=== PATIENT | male | born 1960 | race Caucasian/White ===

== ENCOUNTER 2022-12-08 19:47 | Inpatient (IN) | payer MEDICARE, OTHER ==
[~2022-12-08] VITALS: Ht 172.7 cm; Wt 46.8 kg
[2022-12-08] MEDS ORDERED: IPRATROPIUM 0.5MG/ALBUTEROL 2.5MG INH SOL UD 3ML (DUONEB) NEB ONE (20:35)
[2022-12-08] MEDS ORDERED: methylPREDNISolone 125MG 2ML VIAL IV ONE (20:35)
[2022-12-08 20:40] LABS: HEMOGLOBIN 14.1 g/dl (13.5-17.5); MEAN CORPUSCULAR HEMOGLOBIN 33.5 pg (27.0-33.0); MEAN CORPUSCULAR HGB CONC 33.6 g/dl (32.0-36.5); MEAN CORPUSCULAR VOLUME 99.8 fl (80.0-96.0); PLATELET COUNT, AUTOMATED 261 10^3/uL (150-450); RED BLOOD COUNT 4.21 10^6/uL (4.30-6.10); WHITE BLOOD COUNT 9.1 10^3/uL (4.0-10.0)
[2022-12-08 20:52] LABS: INR 1.2; PROTHROMBIN TIME 15.5 SECONDS (12.5-14.5)
[2022-12-08 20:54] LABS: ABG BASE EXCESS 2.3 (-2.0-2.0); ABG HCO3 24.9 MMOL/L (22.0-26.0); ABG O2 SATURATION 90.8 % (95.0-99.0); ABG PARTIAL PRESSURE CO2 32.9 mmHg (35.0-45.0); ABG PARTIAL PRESSURE O2 54.5 mmHg (75.0-100.0); ABG STANDARD HCO3 26.3 MMOL/L. (22.0-26.0); ABG TOTAL CO2 25.9 MMOL/L (23.0-31.0); ABG pH (ARTERIAL) 7.497 UNITS (7.350-7.450)
[2022-12-08 21:05] LABS: CK-MB VALUE MASS 3.4 NG/ML (<3.6); LYMPHOCYTES 9 % (16-44); MONOCYTES 16 % (0-5); NEUTROPHILS 54 % (28-66); PLATELET ESTIMATE NORMAL (NORMAL)
[2022-12-08 21:06] LABS: ANISOCYTOSIS 1+
[2022-12-08 21:07] LABS: ALBUMIN 3.4 G/DL (3.2-5.2); BILIRUBIN,DIRECT 0.6 MG/DL (<0.4); BILIRUBIN,TOTAL 1.7 MG/DL (0.3-1.2); CALCIUM LEVEL 8.9 MG/DL (8.3-10.6); CREATININE FOR GFR 1.55 MG/DL (0.70-1.30); GLOMERULAR FILTRATION RATE 48.3 (>49); MB/CK RELATIVE INDEX 1.84 (< OR =4); POTASSIUM SERUM 3.5 MMOL/L (3.5-5.1); TOTAL PROTEIN 6.2 G/DL (5.7-8.2)
[2022-12-08 21:09] LABS: THYROID STIMULATING HORMONE 0.735 uIU/ML (0.55-4.78)
[2022-12-08 21:31] LABS: RSV AMPLIFICATION NEGATIVE (NEGATIVE)
[2022-12-08] MEDS ORDERED: LevoFLOXacin IV 750 MG in IV 1 EA IV ONE (21:35)
[2022-12-08] MEDS ORDERED: ISOVUE-370 76% 100ML VIAL As Ordered ONE (21:39)
[2022-12-08 22:55] LABS: CK-MB VALUE MASS 2.8 NG/ML (<3.6)
[2022-12-08 22:58] LABS: MB/CK RELATIVE INDEX 1.75 (< OR =4)
[2022-12-08] MEDS ORDERED: MICA80TA3 PO (23:25)
[2022-12-08] MEDS ORDERED: XALA0.007 OU (23:25)
[2022-12-08] MEDS ORDERED: VENTAER INH (23:25)
[2022-12-08] MEDS ORDERED: TREL1AER INH (23:25)
[2022-12-08] MEDS ORDERED: HOME MED LIST COMPLETE! XX SCH (23:30)
[2022-12-09] MEDS ORDERED: CLINDAMYCIN 600 MG in IV 1 EA IV SCH (01:35)
[2022-12-09] MEDS ORDERED: ACETAMINOPHEN TAB 650MG DOSE (2X325MG) PO PRN (02:00)
[2022-12-09] MEDS: IPRATROPIUM 0.5MG/ALBUTEROL 2.5MG INH SOL UD 3ML (DUONEB) NEB SCH ×4 (02:50→19:15)
[2022-12-09] MEDS ORDERED: NS 1,000 ML IV SCH (02:55)
[2022-12-09] MEDS: guaiFENesin ER 600 MG TAB PO SCH ×3 (03:06→21:27)
[2022-12-09] MEDS: CLINDAMYCIN 150MG CAPSULE PO SCH ×5 (03:06→21:27)
[2022-12-09] MEDS: methylPREDNISolone 40MG 1ML VIAL IV SCH ×3 (05:08→21:27)
[2022-12-09 06:35] LABS: HEMATOCRIT 37.5 % (42.0-52.0); HEMOGLOBIN 12.4 g/dl (13.5-17.5); MEAN CORPUSCULAR HEMOGLOBIN 32.5 pg (27.0-33.0); MEAN CORPUSCULAR HGB CONC 33.1 g/dl (32.0-36.5); MEAN CORPUSCULAR VOLUME 98.2 fl (80.0-96.0); PLATELET COUNT, AUTOMATED 244 10^3/uL (150-450); RED BLOOD COUNT 3.82 10^6/uL (4.30-6.10)
[2022-12-09 07:14] LABS: PROCALCITONIN 6.61 ng/ml
[2022-12-09 07:19] LABS: ALBUMIN 2.7 G/DL (3.2-5.2); ALKALINE PHOSPHATASE 75 U/L (46-116); ALT/SGPT 23 U/L (7.0-40); AST/SGOT 21 U/L (<34); BILIRUBIN,TOTAL 0.8 MG/DL (0.3-1.2); BLOOD UREA NITROGEN 27 MG/DL (9-23); CALCIUM LEVEL 8.6 MG/DL (8.3-10.6); CARBON DIOXIDE LEVEL 26 MMOL/L (20-31); CHLORIDE LEVEL 100 MMOL/L (98-107); CREATININE FOR GFR 1.17 MG/DL (0.70-1.30); GLOMERULAR FILTRATION RATE > 60.0 (>49); GLUCOSE, FASTING 171 MG/DL (74-106); MAGNESIUM LEVEL 1.9 MG/DL (1.8-2.4); POTASSIUM SERUM 3.4 MMOL/L (3.5-5.1); SODIUM LEVEL 137 MMOL/L (136-145); TOTAL PROTEIN 5.4 G/DL (5.7-8.2)
[2022-12-09] MEDS: ENOXAPARIN 40MG/0.4ML SYRINGE (J1650 PER 10MG) SC SCH (08:33)
[2022-12-09] MEDS: TIOTROPIUM INHALER/CAPSULE (SPIRIVA) INH SCH (08:48)
[2022-12-09] MEDS: ADVAIR HFA 115/21MCG INHALER INH SCH ×2 (08:48→19:15)
[2022-12-09 16:10] VITALS: BP 129/76; TEMP 98.2; O2SAT 95; O2SAT 97
[2022-12-09 20:00] VITALS: BP 122/68; TEMP 99; O2SAT 94
[2022-12-09] MEDS: LATANOPROST 0.005% OPHTH SOLN 2.5 ML OU SCH (21:00)
[2022-12-10] VITALS (7 sets, daily range): BP systolic 118–133; BP diastolic 71–84; TEMP 98.1–98.6; O2SAT 90–94
[2022-12-10] MEDS: IPRATROPIUM 0.5MG/ALBUTEROL 2.5MG INH SOL UD 3ML (DUONEB) NEB SCH ×4 (02:03→19:18)
[2022-12-10] MEDS: methylPREDNISolone 40MG 1ML VIAL IV SCH ×3 (06:33→21:40)
[2022-12-10 06:39] LABS: HEMATOCRIT 35.4 % (42.0-52.0); HEMOGLOBIN 11.6 g/dl (13.5-17.5); MEAN CORPUSCULAR HEMOGLOBIN 32.8 pg (27.0-33.0); MEAN CORPUSCULAR HGB CONC 32.8 g/dl (32.0-36.5); PLATELET COUNT, AUTOMATED 251 10^3/uL (150-450); RED BLOOD COUNT 3.54 10^6/uL (4.30-6.10); WHITE BLOOD COUNT 7.7 10^3/uL (4.0-10.0)
[2022-12-10 07:08] LABS: BLOOD UREA NITROGEN 27 MG/DL (9-23); CALCIUM LEVEL 8.9 MG/DL (8.3-10.6); CARBON DIOXIDE LEVEL 27 MMOL/L (20-31); CHLORIDE LEVEL 104 MMOL/L (98-107); CREATININE FOR GFR 1.03 MG/DL (0.70-1.30); GLOMERULAR FILTRATION RATE > 60.0 (>49); GLUCOSE, FASTING 178 MG/DL (74-106); POTASSIUM SERUM 3.7 MMOL/L (3.5-5.1); SODIUM LEVEL 139 MMOL/L (136-145)
[2022-12-10 07:25] LABS: LYMPHOCYTES 2 % (16-44); MONOCYTES 4 % (0-5); NEUTROPHILS 84 % (28-66)
[2022-12-10 07:27] LABS: PLATELET ESTIMATE NORMAL (NORMAL)
[2022-12-10] MEDS: TIOTROPIUM INHALER/CAPSULE (SPIRIVA) INH SCH (07:37)
[2022-12-10] MEDS: ADVAIR HFA 115/21MCG INHALER INH SCH ×2 (07:38→19:18)
[2022-12-10] MEDS: CLINDAMYCIN 150MG CAPSULE PO SCH ×4 (08:50→21:41)
[2022-12-10] MEDS: guaiFENesin ER 600 MG TAB PO SCH ×2 (08:50→21:41)
[2022-12-10] MEDS: ENOXAPARIN 40MG/0.4ML SYRINGE (J1650 PER 10MG) SC SCH (08:51)
[2022-12-10] MEDS: LevoFLOXacin IV 750 MG in IV 1 EA IV SCH ×2 (21:40→23:08)
[2022-12-10] MEDS: LATANOPROST 0.005% OPHTH SOLN 2.5 ML OU SCH (21:41)
[2022-12-11] VITALS (13 sets, daily range): BP systolic 109–151; BP diastolic 67–91; TEMP 98.1–98.4; O2SAT 90–94
[2022-12-11] MEDS: IPRATROPIUM 0.5MG/ALBUTEROL 2.5MG INH SOL UD 3ML (DUONEB) NEB SCH ×4 (01:59→19:37)
[2022-12-11] MEDS: methylPREDNISolone 40MG 1ML VIAL IV SCH ×3 (05:00→20:10)
[2022-12-11 05:59] LABS: HEMATOCRIT 32.4 % (42.0-52.0); HEMOGLOBIN 10.7 g/dl (13.5-17.5); PLATELET COUNT, AUTOMATED 271 10^3/uL (150-450); RED BLOOD COUNT 3.24 10^6/uL (4.30-6.10)
[2022-12-11 06:20] LABS: ERYTHROCYTE SEDIMENTATION RATE 44 mm/hr (0-20)
[2022-12-11 06:38] LABS: BLOOD UREA NITROGEN 25 MG/DL (9-23); CALCIUM LEVEL 8.9 MG/DL (8.3-10.6); CARBON DIOXIDE LEVEL 26 MMOL/L (20-31); CHLORIDE LEVEL 107 MMOL/L (98-107); CREATININE FOR GFR 0.95 MG/DL (0.70-1.30); GLOMERULAR FILTRATION RATE > 60.0 (>49); GLUCOSE, FASTING 148 MG/DL (74-106); POTASSIUM SERUM 3.8 MMOL/L (3.5-5.1); SODIUM LEVEL 143 MMOL/L (136-145)
[2022-12-11 06:52] LABS: LYMPHOCYTES 4 % (16-44); MONOCYTES 6 % (0-5); NEUTROPHILS 90 % (28-66); PLATELET ESTIMATE NORMAL (NORMAL); PROCALCITONIN 2.32 ng/ml
[2022-12-11] MEDS: TIOTROPIUM INHALER/CAPSULE (SPIRIVA) INH SCH (07:36)
[2022-12-11] MEDS: ADVAIR HFA 115/21MCG INHALER INH SCH ×2 (07:36→19:37)
[2022-12-11] MEDS: CLINDAMYCIN 150MG CAPSULE PO SCH (08:08)
[2022-12-11] MEDS: guaiFENesin ER 600 MG TAB PO SCH ×2 (08:08→20:10)
[2022-12-11] MEDS: ENOXAPARIN 40MG/0.4ML SYRINGE (J1650 PER 10MG) SC SCH (08:09)
[2022-12-11] MEDS: LevoFLOXacin 750 MG TABLET PO SCH (08:12)
[2022-12-11] MEDS: LACTOBACILLUS ACIDOPHILUS CAP (BACID) PO SCH ×4 (09:22→20:10)
[2022-12-11] MEDS: LATANOPROST 0.005% OPHTH SOLN 2.5 ML OU SCH (20:10)
[2022-12-12] MEDS: IPRATROPIUM 0.5MG/ALBUTEROL 2.5MG INH SOL UD 3ML (DUONEB) NEB SCH ×2 (01:28→07:48)
[2022-12-12] MEDS: LevoFLOXacin 750 MG TABLET PO SCH (05:16)
[2022-12-12] MEDS: methylPREDNISolone 40MG 1ML VIAL IV SCH (05:16)
[2022-12-12 05:32] VITALS: BP 128/86; TEMP 97.9; O2SAT 93
[2022-12-12 05:48] LABS: BASO % 0.1 % (0.0-1.0); HEMATOCRIT 32.5 % (42.0-52.0); HEMOGLOBIN 10.6 g/dl (13.5-17.5); LYMPH # 0.5 10^3/uL (1.5-5.0); LYMPH % 6.3 % (24.0-44.0); MEAN CORPUSCULAR HEMOGLOBIN 32.7 pg (27.0-33.0); MEAN CORPUSCULAR HGB CONC 32.6 g/dl (32.0-36.5); MEAN CORPUSCULAR VOLUME 100.3 fl (80.0-96.0); MONO # 0.8 10^3/uL (0.0-0.8); MONO % 8.7 % (2.0-8.0); NEUTROPHILS # 7.3 10^3/uL (1.5-8.5); NEUTROPHILS % 84.1 % (36.0-66.0); PLATELET COUNT, AUTOMATED 277 10^3/uL (150-450); RED BLOOD COUNT 3.24 10^6/uL (4.30-6.10); WHITE BLOOD COUNT 8.6 10^3/uL (4.0-10.0)
[2022-12-12 06:13] LABS: BLOOD UREA NITROGEN 24 MG/DL (9-23); CALCIUM LEVEL 8.8 MG/DL (8.3-10.6); CARBON DIOXIDE LEVEL 28 MMOL/L (20-31); CHLORIDE LEVEL 107 MMOL/L (98-107); CREATININE FOR GFR 1.08 MG/DL (0.70-1.30); GLOMERULAR FILTRATION RATE > 60.0 (>49); GLUCOSE, FASTING 126 MG/DL (74-106); POTASSIUM SERUM 4.2 MMOL/L (3.5-5.1); SODIUM LEVEL 144 MMOL/L (136-145)
[2022-12-12] MEDS: TIOTROPIUM INHALER/CAPSULE (SPIRIVA) INH SCH (07:49)
[2022-12-12] MEDS: ADVAIR HFA 115/21MCG INHALER INH SCH (07:49)
[2022-12-12 07:50] VITALS: O2SAT 94
[2022-12-12] MEDS: ENOXAPARIN 40MG/0.4ML SYRINGE (J1650 PER 10MG) SC SCH (08:07)
[2022-12-12] MEDS: guaiFENesin ER 600 MG TAB PO SCH (08:07)
[2022-12-12] MEDS: LACTOBACILLUS ACIDOPHILUS CAP (BACID) PO SCH (08:07)
[2022-12-12 09:45] VITALS: O2SAT 92
[2022-12-12] MEDS ORDERED: PRED50TA PO (10:17)
[2022-12-12] MEDS ORDERED: LEVO1TAB40 PO (10:17)
[2022-12-12] MEDS ORDERED: MUCI600T31 PO (10:17)
== END 2022-12-12 12:45 | disposition home or self-care (01) | DRG 193 ==
LOC: M ED 19:47 → M ED INP 12-09 01:35 → M MSPAV 12-09 16:14
PROVIDERS: ADMIT Internal Medicine; ATTEND Family Medicine
DX: J13 Pneumonia due to Streptococcus pneumoniae (principal); J96.01 Acute respiratory failure with hypoxia; E87.3 Alkalosis; J44.0 Chronic obstructive pulmonary disease with (acute) lower respiratory infection; J44.1 Chronic obstructive pulmonary disease with (acute) exacerbation; E87.6 Hypokalemia; H35.30 Unspecified macular degeneration; I10 Essential (primary) hypertension; M54.9 Dorsalgia, unspecified; G89.29 Other chronic pain; M19.90 Unspecified osteoarthritis, unspecified site; Z98.41 Cataract extraction status, right eye; Z88.0 Allergy status to penicillin; Z98.42 Cataract extraction status, left eye; Z87.891 Personal history of nicotine dependence; Z86.73 Personal history of transient ischemic attack (TIA), and cerebral infarction without residual deficits; Z79.899 Other long term (current) drug therapy